=== PATIENT | female | born 1960 | race Asian ===

== ENCOUNTER 2018-01-05 08:56 | Emergency (ER) | payer MEDICAID ==
[~2018-01-05] VITALS: Ht 167.6 cm; Wt 69.0 kg
[2018-01-05 12:50] VITALS: BP 126/71
== END 2018-01-05 13:26 | disposition home or self-care (01) ==
LOC: ER 10:42
DX: S80.01XA Contusion of right knee, initial encounter (principal); E11.9 Type 2 diabetes mellitus without complications; I10 Essential (primary) hypertension; J45.909 Unspecified asthma, uncomplicated; W18.39XA Other fall on same level, initial encounter; Y93.89 Activity, other specified; Y92.89 Other specified places as the place of occurrence of the external cause; Y99.8 Other external cause status
CPT/HCPCS: 73562; 99284

== ENCOUNTER 2022-04-12 10:35 | Emergency (ER) | payer MEDICAID, OTHER ==
[~2022-04-12] VITALS: Ht 167.6 cm; Wt 101.0 kg
[2022-04-12 10:42] VITALS: BP 124/70
[2022-04-12 13:06] LABS: CLARITY URINE CLEAR (CLEAR); COLOR URINE YELLOW (YELLOW); KETONES URINE NEGATIVE (NEGATIVE); LEUKOCYTE ESTERASE URINE NEGATIVE (NEGATIVE); NITRITE URINE NEGATIVE (NEGATIVE); OCCULT BLOOD URINE NEGATIVE (NEGATIVE); PH URINE 6.5 (4.5-8.0); PROTEIN URINE 1+ (NEGATIVE); SPECIFIC GRAVITY URINE 1.015 (1.005-1.030); UROBILINOGEN URINE 0.2 E.U./dL (0.2-1.0)
[2022-04-12] MEDS ORDERED: TOPUD MT (13:34)
== END 2022-04-12 14:00 | disposition home or self-care (01) ==
LOC: ER 10:35
DX: M25.511 Pain in right shoulder (principal); M54.50 Low back pain, unspecified; J45.909 Unspecified asthma, uncomplicated; E11.9 Type 2 diabetes mellitus without complications; I10 Essential (primary) hypertension
CPT/HCPCS: 73030; 81003; 99283

== ENCOUNTER 2022-05-02 09:04 | Inpatient (IN) | payer MEDICAID, OTHER ==
[~2022-05-02] VITALS: Ht 160 cm; Wt 77.6 kg
[~2022-05-02 09:04] MED LIST: TOPUD MT
[2022-05-02] MEDS ORDERED: IPRATROPIUM BROMIDE (0.02%) 0.5MG/2.5ML NEB HHN STA (09:15)
[2022-05-02] MEDS ORDERED: METHYLPREDNISOLONE SOD SUCC 125 MG/2 ML VIAL IV STA (09:15)
[2022-05-02] MEDS: ALBUTEROL (0.083%) 2.5MG/3ML NEB HHN SCH ×3 (09:57→10:30)
[2022-05-02 11:12] LABS: BASOPHILS % 0.4 % (0.0-2.0); EOSINOPHILS % 1.3 % (0.0-5.0); HEMATOCRIT. 32.9 % (36.0-48.0); HEMOGLOBIN. 10.8 g/dL (12.0-16.0); LYMPHOCYTES % 24.4 % (20.0-50.0); MEAN CORPUSCULAR HEMOGLOBIN 30.7 pg (28.0-32.0); MEAN CORPUSCULAR VOLUME 93.3 fL (81.0-99.0); MEAN PLATELET VOLUME 7.9 fl (7.4-10.4); MONOCYTES % 13.3 % (2.0-8.0); NEUTROPHILS % 60.6 % (40.0-76.0); PLATELET 310 x1000/uL (130-400); RED BLOOD CELL COUNT 3.53 mill/uL (4.2-5.4); RED CELL DISTRIBUTION WIDTH 14.3 % (11.6-14.6)
[2022-05-02 11:17] LABS: CHLORIDE 102 mEq/L (98-107)
[2022-05-02] MEDS ORDERED: POTASSIUM CHLORIDE 20MEQ TABLET SR PO NR (12:30)
[2022-05-02] MEDS ORDERED: METHYLPREDNISOLONE SOD SUCC 125 MG/2 ML VIAL IV NR (15:45)
[2022-05-02] MEDS ORDERED: CLONIDINE 0.1MG TABLET PO PRN (18:15)
[2022-05-02] MEDS ORDERED: IPRATROPIUM/ALBUTEROL 0.5-3(2.5)MG/3ML NEB HHN PRN (18:15)
[2022-05-02] MEDS ORDERED: DOCUSATE SODIUM 100MG CAPSULE PO PRN (18:15)
[2022-05-02] MEDS ORDERED: HYDROCODONE/ACETAMINOPHEN 5/325MG TABLET PO PRN (18:15)
[2022-05-02] MEDS ORDERED: ONDANSETRON HCL 4MG/2ML INJ IV PRN (18:15)
[2022-05-02] MEDS ORDERED: ACETAMINOPHEN 325MG TABLET PO PRN ×2 (18:15)
[2022-05-02] MEDS ORDERED: LORAZEPAM 0.5MG TABLET PO PRN (18:15)
[2022-05-02] MEDS ORDERED: NALOXONE HCL 0.4MG/ML VIAL IV PRN (18:15)
[2022-05-02 22:27] VITALS: BP 148/85
[2022-05-02] MEDS: METHYLPREDNISOLONE SOD SUCC 40 MG/ML VIAL IV SCH (22:58)
[2022-05-02 23:03] VITALS: BP 141/86
[2022-05-03] VITALS: BP 129/86
[2022-05-03 04:00] VITALS: BP 168/97
[2022-05-03 05:31] LABS: CHLORIDE 105 mEq/L (98-107); HEMATOCRIT. 31.8 % (36.0-48.0); HEMOGLOBIN. 10.5 g/dL (12.0-16.0); MEAN CORPUSCULAR HEMOGLOBIN 30.7 pg (28.0-32.0); MEAN CORPUSCULAR VOLUME 92.7 fL (81.0-99.0); MEAN PLATELET VOLUME 8.5 fl (7.4-10.4); PLATELET 330 x1000/uL (130-400); RED BLOOD CELL COUNT 3.43 mill/uL (4.2-5.4); RED CELL DISTRIBUTION WIDTH 14.4 % (11.6-14.6)
[2022-05-03] MEDS: METHYLPREDNISOLONE SOD SUCC 40 MG/ML VIAL IV SCH (06:13)
[2022-05-03] MEDS ORDERED: DEXTROSE 50% WATER 50ML SYRINGE IV PRN (07:00)
[2022-05-03] MEDS: BLOOD SUGAR DIAGNOSTIC STRIP TEST SCH ×2 (07:20→11:50)
[2022-05-03 08:00] VITALS: BP 162/97
[2022-05-03] MEDS ORDERED: POTASSIUM CHLORIDE 20MEQ TABLET SR PO NR (08:00)
[2022-05-03] MEDS ORDERED: MAGNESIUM 2 G PREMIX 50 ML IV NR (09:00)
[2022-05-03] MEDS ORDERED: GUAIFENESIN 600MG ER TABLET PO SCH (09:00)
[2022-05-03] MEDS: INSULIN LISPRO 100 UNITS/ML SUBCUT SCH ×2 (09:11→12:38)
[2022-05-03] MEDS ORDERED: GUAI600T44 PO (09:12)
[2022-05-03] MEDS ORDERED: ALBU18HF2 IH (09:12)
[2022-05-03] MEDS ORDERED: AMLO5TAB88 MT (09:14)
[2022-05-03] MEDS ORDERED: AMLODIPINE 5MG TABLET PO SCH (09:15)
[2022-05-03 09:16] LABS: HEPATITIS B SURFACE ANTIGEN NEGATIVE
[2022-05-03] MEDS ORDERED: ENOXAPARIN 40MG/0.4ML SYR SUBCUT SCH (10:00)
[2022-05-03 11:06] VITALS: BP 168/97
[2022-05-03 12:00] VITALS: BP 152/86
[2022-05-03 12:59] LABS: PLATELET ESTIMATE NORMAL
[2022-05-03] MEDS ORDERED: CALCIUM CARBONATE 500MG TABLET CHEW PO NR (16:00)
== END 2022-05-03 15:19 | disposition home or self-care (01) | DRG 113 ==
LOC: ER 09:04 → MICUSO 15:25 → EDBEDREQTM 15:58 → EDBEDREQ 15:58 → 3WST 20:39
PROVIDERS: ADMIT Internal Medicine; ATTEND Internal Medicine
DX: J06.9 Acute upper respiratory infection, unspecified (principal); J44.1 Chronic obstructive pulmonary disease with (acute) exacerbation; D64.9 Anemia, unspecified; E11.9 Type 2 diabetes mellitus without complications; D72.821 Monocytosis (symptomatic); D72.829 Elevated white blood cell count, unspecified; E83.42 Hypomagnesemia; E87.6 Hypokalemia; I10 Essential (primary) hypertension; Z20.822 Contact with and (suspected) exposure to COVID-19; Z79.84 Long term (current) use of oral hypoglycemic drugs
CPT/HCPCS: 36415; 71045; 80048; 80053; 82962; 83036; 83735; 83880; 84066; 84484; 85025; 86803; 87340; 87426; 87804; 93005; 94640; 99285; C9803; J1815; J2920; J2930; J3475